=== PATIENT | male | born 1980 | race Caucasian/White ===

== ENCOUNTER 2017-09-18 19:53 | Emergency (ER) | payer OTHER ==
--- NOTE | 2017-09-18 21:05 | ER Document Report ---
ED General - General Stated Complaint: SUICIDAL IDEATION Time Seen by Provider: 09/18/17 20:44 Cannot obtain history due to: Uncooperative Notes: Patient is a 37-year-old male who [facility] from the local [facility] with concerns that he may have injured his tongue and apparent suicide attempt. The patient apparently bit his tongue and attempt to harm himself. Patient has been monitored on suicide watch for several weeks as apparently he has refused to eat since early August. The patient does not provide any additional meaningful history and the therapist asst with the patient only knows him from transporting him to the emergency department. Apparently there are no additional concerns. Past Medical History - General Information source: Patient, [employer] - Social History Smoking Status: Former Smoker Frequency of alcohol use: None Drug Abuse: None Lives with: Other - [facility] Family History: Reviewed & Not Pertinent Review of Systems - Review of Systems Notes: Constitutional: Negative for fever. HENT: Negative for sore throat. Eyes: Negative for visual changes. Cardiovascular: Negative for chest pain. Respiratory: Negative for shortness of breath. Gastrointestinal: Negative for abdominal pain, vomiting or diarrhea. Genitourinary: Negative for dysuria. Musculoskeletal: Negative for back pain. Skin: Negative for rash. Neurological: Negative for headaches, weakness or numbness. 10 point ROS negative except as marked above and in HPI. Physical Exam - Vital signs Vitals: Temp Pulse Resp BP Pulse Ox 99.1 F 67 16 124/88 H 99 09/18/17 21:03 09/18/17 21:03 09/18/17 21:03 09/18/17 21:03 09/18/17 21:03 Interpretation: Normal Notes: PHYSICAL EXAMINATION: GENERAL: Well-appearing, well-nourished and in no acute distress. HEAD: Atraumatic, normocephalic. EYES: Pupils equal round and reactive to light, extraocular movements intact, sclera anicteric, conjunctiva are normal. ENT: nares patent, no apparent trauma to the tongue, oropharynx clear without exudates. Moist mucous membranes. NECK: Normal range of motion, supple without lymphadenopathy LUNGS: Breath sounds clear to auscultation bilaterally and equal. No wheezes rales or rhonchi. HEART: Regular rate and rhythm without murmurs ABDOMEN: Soft, nontender, normoactive bowel sounds. No guarding, no rebound. No masses appreciated. EXTREMITIES: Normal range of motion, no pitting or edema. No cyanosis. NEUROLOGICAL: No focal neurological deficits. Moves all extremities spontaneously and on command. PSYCH: Endorsing suicidal ideation. Blunted affect. Depressed mood. SKIN: Warm, Dry, normal turgor, no rashes or lesions noted. Course - Re-evaluation Re-evalutation: 09/18/17 21:04 Patient presents after apparently biting his tongue in a suicide attempt. There is no significant laceration or injury to his he was sent by the [facility] specifically for evaluation of this and he is ready under suicide precautions later at the [facility]. There is no indication for labs or imaging. No additional assessment will be performed. Patient denies any additional complaints. - Vital Signs Vital signs: Temp Pulse Resp BP Pulse Ox 98.9 F 72 18 132/90 H 98 09/18/17 21:59 09/18/17 21:59 09/18/17 21:59 09/18/17 21:59 09/18/17 21:59 Discharge - Discharge Clinical Impression: Suicidal ideation Tongue injury Qualifiers: Encounter type: initial encounter Qualified Code(s): S09.93XA - Unspecified injury of face, initial encounter Condition: Good Disposition: HOME, SELF-CARE Additional Instructions: The patient's tongue does not show any significant injuries. Maintain him on suicide watch.
[2017-09-18 22:00] VITALS: BP 132/90
== END 2017-09-18 22:01 | disposition home or self-care (01) ==
LOC: ER 19:53
DX: R45.851 Suicidal ideations (principal); S09.93XA Unspecified injury of face, initial encounter; X83.8XXA Intentional self-harm by other specified means, initial encounter; Z87.891 Personal history of nicotine dependence
CPT/HCPCS: 99284

== ENCOUNTER → 2017-10-08 | Outpatient (CLI) | payer OTHER ==
--- NOTE | 2017-10-08 13:32 | RADIOLOGY REPORT (SQ) ---
EXAM DESCRIPTION: CT HEAD WITHOUT COMPLETED DATE/TIME: 10/08/2017 1:24 pm REASON FOR STUDY: ABN LABS, DIZZINESS, BLURRED VISION (R42) R42 DIZZINESS AND GIDDINESS COMPARISON: None. TECHNIQUE: Axial images acquired through the brain without intravenous contrast. Images reviewed wi th bone, brain and subdural windows. Images stored on PACS. All CT scanners at this facility use dose modulation, iterative reconstruction, and/or weight based d osing when appropriate to reduce radiation dose to as low as reasonably achievable (ALARA). [facility]: Dose Right [facility]: CareDose [facility]: Dose Right [facility]: Teradose 4D [facility]: [email or web address] RADIATION DOSE: CT Rad equipment meets quality standard of care and radiation dose reduction techniq ues were employed. CTDIvol: 49.0 mGy. DLP: 979 mGy-cm. mGy. LIMITATIONS: None. FINDINGS: VENTRICLES: Normal size and contour. CEREBRUM: No masses. No hemorrhage. No midline shift. No evidence for acute infarction. Normal gra y/white matter differentiation. No areas of low density in the white matter. CEREBELLUM: No masses. No hemorrhage. No alteration of density. No evidence for acute infarction. EXTRAAXIAL SPACES: No fluid collections. No masses. ORBITS AND GLOBE: No intra- or extraconal masses. Normal contour of globe without masses. CALVARIUM: No fracture. PARANASAL SINUSES: No fluid or mucosal thickening. SOFT TISSUES: No mass or hematoma. OTHER: No other significant finding. IMPRESSION: NORMAL BRAIN CT WITHOUT CONTRAST. EVIDENCE OF ACUTE STROKE: NO. COMMENT: Quality ID # [id number]: Final reports with documentation of one or more dose reduction techniques (e.g., Automated exposure control, adjustment of the mA and/or kV according to patient size, use of iterative reconstruction technique) TECHNICAL DOCUMENTATION: JOB ID: [id number] [employer]- All Rights Reserved
== END ==
LOC: RAD 13:03
PROVIDERS: ATTEND Family Medicine
DX: R42 Dizziness and giddiness (principal); H53.8 Other visual disturbances
CPT/HCPCS: 70450